=== PATIENT | male | born 1950 | race Caucasian/White ===

== ENCOUNTER 2022-03-21 14:50 | Emergency (ER) | payer OTHER ==
[~2022-03-21] VITALS: Ht 185.4 cm; Wt 94.8 kg
[2022-03-21] MEDS ORDERED: PRED50TA2 PO (17:38)
[2022-03-21] MEDS ORDERED: OXYC-38 PO (17:38)
[2022-03-21] MEDS ORDERED: OXYCODONE/ACETAMIN 5/325MG TAB PO ONE (18:00)
[2022-03-21 18:30] VITALS: BP 137/80
[2022-03-22] MEDS ORDERED: OXYC-38 PO (14:41)
[2022-03-22] MEDS ORDERED: PRED50TA2 PO (14:41)
== END 2022-03-21 18:23 | disposition home or self-care (01) ==
LOC: EDH 14:50
DX: S70.01XA Contusion of right hip, initial encounter (principal); S73.101A Unspecified sprain of right hip, initial encounter; E11.9 Type 2 diabetes mellitus without complications; E78.00 Pure hypercholesterolemia, unspecified; I10 Essential (primary) hypertension; Z90.49 Acquired absence of other specified parts of digestive tract; Z98.890 Other specified postprocedural states; W18.39XA Other fall on same level, initial encounter; Y93.89 Activity, other specified; Y92.89 Other specified places as the place of occurrence of the external cause; Y99.8 Other external cause status
CPT/HCPCS: 72192; 73502

== ENCOUNTER → 2024-12-22 | Outpatient (CLI) | payer OTHER ==
[~2024-12-22] MED LIST: AMLO-257 PO; APIX5TAB PO; ASPI-1005 PO; ATOR40TA69 PO; CARV12.511 PO; CLOP-31 PO; EMPA25TA PO; ERGO500093 PO; GLIP10TA16 PO; OLOP5DRO26 OP; OMEP20CA12 PO; SACU1TAB7 PO; TIRZ7.5P SQ
--- NOTE | 2024-12-22 11:10 | HMCIMG ---
PROCEDURE: Esophagram. TECHNIQUE: Oral ingestion of barium and effervescent crystals was performed and multiple fluoroscopic images were obtained to evaluate the esophagus. FLUOROSCOPY TIME: 0.9 minutes pulsed fluoroscopy. FINDINGS: The esophagus demonstrates normal motility. The mucosa is normal without evidence of mass, ulceration, or stricture. There is grade 1 gastroesophageal reflux witnessed during this examination. There is no hiatal hernia. A barium tablet easily passed through the esophagus into the stomach without hold up. Real-time visualization of swallowing were performed and demonstrated normal swallowing mechanism, normal contour, and normal mucosa. There is cardiomegaly with median sternotomy with cardiac revascularization procedure. IMPRESSION: Grade 1 esophageal reflux otherwise a normal esophagram. . Status post median sternotomy with cardiac revascularization procedure
== END | disposition home or self-care (01) ==
LOC: RAH 08:13
PROVIDERS: ATTEND Internal Medicine Critical Care Medicine
DX: K21.9 Gastro-esophageal reflux disease without esophagitis (principal); R13.10 Dysphagia, unspecified; Z98.890 Other specified postprocedural states
CPT/HCPCS: 74220